=== PATIENT | male | born 1980 | race Caucasian/White ===

== ENCOUNTER 2022-06-21 11:06 | Outpatient (REF) | payer BC, SELFPAY ==
--- NOTE | ~2022-06-21 | XR_ITS ---
EXAMINATION: XR chest 2V CLINICAL INFORMATION: Reason for Exam J20.9 - Acute bronchitis, unspecified COMPARISON: None TECHNIQUE: 2 views of the chest FINDINGS: Right lung base hazy opacities may reflect aspiration, atelectasis, or infection. No pneumothorax or pleural effusion. Normal cardiomediastinal silhouette. XR/XR chest 2V Impression: Right lung base hazy opacities may reflect aspiration, atelectasis, or infection.
== END 2022-06-21 11:07 | disposition home or self-care (01) ==
LOC: HO.XRAY 11:06
PROVIDERS: Visit Provider Nurse Practitioner Family
DX: J20.9 Acute bronchitis, unspecified (principal)
CPT/HCPCS: 71046